=== PATIENT | female | born 1965 | race Two or more races ===

== ENCOUNTER 2023-09-24 00:16 | Emergency (ER) | payer SELFPAY ==
[2023-09-24 00:25] VITALS: BP 144/59; PULSE 62; RESP 18; TEMP 97.8; BMI 32.1
[2023-09-24] MEDS ORDERED: ACETAMINOPHEN INJECTION 100 ML IVPB ONE (01:16)
[2023-09-24] MEDS ORDERED: METOCLOPRAMIDE HCL INJECTION 10 MG/2 ML VIAL ONE (01:16)
[2023-09-24] MEDS: ACETAMINOPHEN 1000 MG/100 ML BAG IVPB ONE (01:31)
[2023-09-24] MEDS: SODIUM CHLORIDE 0.9% 500 ML INFUS.BAG IV ONE (01:31)
[2023-09-24] MEDS: METOCLOPRAMIDE HCL INJECTION 10 MG/2 ML VIAL IVPB ONE (01:31)
== END 2023-09-24 03:11 | disposition home or self-care (01) ==
LOC: JER 00:16
PROC: 3E033NZ Introduction of Analgesics, Hypnotics, Sedatives into Peripheral Vein, Percutaneous Approach (ICD-10-PCS; principal; 2023-09-24)
PROC: 3E033GC Introduction of Other Therapeutic Substance into Peripheral Vein, Percutaneous Approach (ICD-10-PCS; 2023-09-24)
DX: R51.9 Headache, unspecified (principal); M79.662 Pain in left lower leg; M25.511 Pain in right shoulder
CPT/HCPCS: 70450-TC; 99284-25; J0131